=== PATIENT | male | born 1980 | race Two or more races ===

== ENCOUNTER 2019-03-29 03:37 | Emergency (ER) | payer SELFPAY ==
[~2019-03-29] VITALS: Ht 172.7 cm; Wt 76.0 kg
[2019-03-29 04:19] LABS: EOSINOPHILS % 0.9 % (0.0-5.0); HEMATOCRIT. 43.4 % (42.0-52.0); HEMOGLOBIN. 15.1 g/dL (14.0-18.0); LYMPHOCYTES % 33.5 % (20.0-50.0); MEAN CORPUSCULAR HEMOGLOBIN 30.9 pg (28.0-32.0); MEAN CORPUSCULAR VOLUME 88.4 fL (80.0-94.0); MEAN PLATELET VOLUME 9.4 fl (7.4-10.4); MONOCYTES % 7.1 % (2.0-8.0); NEUTROPHILS % 57.5 % (40.0-76.0); PLATELET 163 x1000/uL (130-400); RED BLOOD CELL COUNT 4.91 mill/uL (4.7-6.1); RED CELL DISTRIBUTION WIDTH 13.1 % (11.6-14.6)
[2019-03-29 04:23] LABS: CHLORIDE 108 mEq/L (98-107)
[2019-03-29] MEDS ORDERED: MAGNESIUM/ALUMINUM HYDROXIDE/SIMETHICONE 30ML UDC PO SCH (05:00)
[2019-03-29] MEDS ORDERED: ACETAMINOPHEN 500MG TABLET PO SCH (05:00)
[2019-03-29] MEDS ORDERED: OXYCODONE HCL 5MG TABLET PO ONE (05:15)
[2019-03-29] MEDS ORDERED: IOHEXOL-350 100 ML BOTTLE ONE (05:53)
[2019-03-29 06:45] VITALS: BP 122/69
== END 2019-03-29 07:06 | disposition home or self-care (01) ==
LOC: ER 03:37 → CANBEDREQ 12:22
DX: R07.89 Other chest pain (principal); W18.39XA Other fall on same level, initial encounter; Y93.89 Activity, other specified; Y92.89 Other specified places as the place of occurrence of the external cause; Y99.8 Other external cause status
CPT/HCPCS: 36415; 71045; 71275; 80053; 83880; 84484; 85025; 85379; 93005; 99284; Q9967

== ENCOUNTER 2024-07-21 10:13 | Emergency (ER) | payer MEDICAID ==
[~2024-07-21] VITALS: Ht 182.9 cm; Wt 85.7 kg
[2024-07-21 10:24] VITALS: O2SAT 97
[2024-07-21] MEDS: METOCLOPRAMIDE HCL 10MG TABLET PO ONE (10:59)
[2024-07-21] MEDS: IBUPROFEN 600MG TABLET PO ONE (10:59)
[2024-07-21] MEDS: DIPHENHYDRAMINE 25MG CAPSULE PO ONE (11:09)
[2024-07-21] MEDS ORDERED: IBUP-2029 MT (13:26)
[2024-07-21 13:32] VITALS: BP 111/70; PULSE 57; RESP 18; TEMP 37.05852; O2SAT 62
== END 2024-07-21 13:40 | disposition home or self-care (01) ==
LOC: ER 10:13
DX: G44.209 Tension-type headache, unspecified, not intractable (principal)
CPT/HCPCS: 99284; 70450; Q0163; J8597